=== PATIENT | female | born 1960 | race Caucasian/White ===

== ENCOUNTER 2024-04-12 10:55 | Outpatient (CLI) | payer OTHER, SELFPAY | END 2024-04-12 10:56 | disposition home or self-care (01) | PROVIDERS: PCP Nurse Practitioner Family; Visit Provider Nurse Practitioner Family | DX: R79.89 Other specified abnormal findings of blood chemistry (principal); E53.8 Deficiency of other specified B group vitamins; F10.20 Alcohol dependence, uncomplicated; F17.200 Nicotine dependence, unspecified, uncomplicated; Z13.21 Encounter for screening for nutritional disorder; Z13.0 Encounter for screening for diseases of the blood and blood-forming organs and certain disorders involving the immune mechanism; Z13.6 Encounter for screening for cardiovascular disorders | CPT/HCPCS: 80053; 80061; 82306; 82607; 83735; 85025 ==

== ENCOUNTER 2024-05-02 09:20 | Outpatient (CLI) | payer OTHER, SELFPAY ==
--- NOTE | 2024-05-02 10:57 | P.ANES_ITS ---
Anesthesia Charges Start Date/Time Anesthesia Start Date: 05/02/24 Anesthesia Start Time: 10:03 Stop Date/Time Anesthesia Stop Date: 05/02/24 Anesthesia Stop Time: 10:55 Coding CPT Codes CPT Codes: ANES LWR INTST NDSC NOS - [id number] ([id number]) P3 - PATIENT W/SEVERE SYS DISEASE, QK - BLIND TEACHER 2-4 CNCRNT ANES PROC, QX - MEDIA PLANNER SVC W/ MD MED DIRECTION
--- NOTE | 2024-05-02 10:57 | W.ANESCHARGE ---
Anesthesia Charges Start Date/Time Anesthesia Start Date: 05/02/24 Anesthesia Start Time: 10:03 Stop Date/Time Anesthesia Stop Date: 05/02/24 Anesthesia Stop Time: 10:55 Coding CPT Codes CPT Codes: ANES LWR INTST NDSC NOS - [id number] ([id number]) P3 - PATIENT W/SEVERE SYS DISEASE, QK - FISH CHECKER 2-4 CNCRNT ANES PROC, QX - MARINE INSURANCE CLAIM EXAMINER SVC W/ MD MED DIRECTION
--- NOTE | 2024-05-02 12:11 | P.ANES_ITS ---
Anesthesia Charges Start Date/Time Anesthesia Start Date: 05/02/24 Anesthesia Start Time: 10:03 Stop Date/Time Anesthesia Stop Date: 05/02/24 Anesthesia Stop Time: 10:55 Coding CPT Codes CPT Codes: ANES LWR INTST NDSC NOS - [id number] ([id number]) QK - SOLUTION SPECIALIST 2-4 CNCRNT ANES PROC, QX - PERINATAL DIRECTOR SVC W/ MED DIRECTION, P3 - PATIENT W/SEVERE SYS DISEASE
--- NOTE | 2024-05-02 12:11 | W.ANESCHARGE ---
Anesthesia Charges Start Date/Time Anesthesia Start Date: 05/02/24 Anesthesia Start Time: 10:03 Stop Date/Time Anesthesia Stop Date: 05/02/24 Anesthesia Stop Time: 10:55 Coding CPT Codes CPT Codes: ANES LWR INTST NDSC NOS - [id number] ([id number]) QK - RN ADMISSION 2-4 CNCRNT ANES PROC, QX - EMBOSSING PRESS OPERATOR SVC W/ MED DIRECTION, P3 - PATIENT W/SEVERE SYS DISEASE
== END 2024-05-02 09:21 | disposition home or self-care (01) ==
LOC: OP CLINIC 09:21
PROVIDERS: PCP Nurse Practitioner Family; Visit Provider Surgery
DX: Z12.11 Encounter for screening for malignant neoplasm of colon (principal); D12.8 Benign neoplasm of rectum; K57.30 Diverticulosis of large intestine without perforation or abscess without bleeding
CPT/HCPCS: 00811; 45385; 88305; J2704

== ENCOUNTER 2024-06-29 12:51 | Outpatient (CLI) | payer OTHER, SELFPAY ==
--- NOTE | 2024-06-29 13:00 | CRLHL7_ITS ---
For Patients: As a result of the Century Cures Act, medical imaging exams and procedure reports are released immediately into your electronic medical record. You may view this report before your referring provider. If you have questions, please contact your health care provider. Indication: Lung cancer screening. Technique: Low-dose noncontrast CT images of the chest. Dose reduction techniques used. Comparison: None. Findings: No focal consolidation, pleural effusion, or pneumothorax. No pulmonary nodules. Calcified granuloma left lower lobe. Moderate upper lobe predominant centrilobular emphysema. Mild scarring/atelectasis in the lingula. Heart size is normal. No pericardial effusion. Coronary artery atherosclerotic calcifications. No mediastinal or hilar lymphadenopathy. Limited images through the upper abdomen are unremarkable. Multilevel thoracic spondylosis. No aggressive osseous lesions. Impression: No lung nodules or masses. Lung rads category 1, negative. Continue annual screening with low-dose chest CT in 12 months. Please note that all CT scans at this facility use dose modulation, iterative reconstruction, and/or weight-based dosing when appropriate to reduce radiation dose to as low as reasonably achievable. Dictated by Alexys Garcia MD @ 06/29/2024 8:02:03 PM (Electronically Signed)
--- NOTE | 2024-06-29 13:40 | CRLHL7_ITS ---
For Patients: As a result of the Century Cures Act, medical imaging exams and procedure reports are released immediately into your electronic medical record. You may view this report before your referring provider. If you have questions, please contact your health care provider. BILATERAL SCREENING MAMMOGRAM WITH COMPUTER-AIDED DETECTION AND TOMOSYNTHESIS TECHNIQUE: CC and MLO views were obtained. These mammographic images have been obtained using full-field digital technique. These mammographic images were interpreted with the benefit of computer-aided detection. Breast Tomosynthesis was used in this interpretation. COMPARISON FILM: New baseline. FINDINGS: The breasts are heterogeneously dense, which may obscure small masses. IMPRESSION: There is no radiographic evidence for malignancy. ASSESSMENT: BI-RADS Category 1: Negative RECOMMENDATION: Routine screening mammogram in 1 year. A lay language report of this examination will be provided to the patient. Rajendra Tillman M.D. Diagnostic Radiologist [email or web address] SP/Dictated by: Rajendra Tillman MD @ 06/30/2024 8:19:00 AM (Electronically Signed)
== END 2024-06-29 12:52 | disposition home or self-care (01) ==
LOC: CT 12:52
PROVIDERS: PCP Nurse Practitioner Family; Visit Provider Nurse Practitioner Family
DX: Z12.2 Encounter for screening for malignant neoplasm of respiratory organs (principal); F17.200 Nicotine dependence, unspecified, uncomplicated; Z12.31 Encounter for screening mammogram for malignant neoplasm of breast; R92.333 Mammographic heterogeneous density, bilateral breasts
CPT/HCPCS: 71271; 77063; 77067